=== PATIENT | male | born 1985 | race Caucasian/White ===

== ENCOUNTER 2023-02-05 16:12 | Emergency (ER) | payer SELFPAY ==
[2023-02-05] MEDS ORDERED: CEFAZOLIN 2 GM VIAL ONE (17:26)
[2023-02-05] MEDS ORDERED: Bacitracin 1 PK ONE (17:26)
[2023-02-05] MEDS ORDERED: Sodium Chloride 0.9% 250 ML 250 ML ONE (17:28)
== END 2023-02-05 19:03 | disposition home or self-care (01) ==
LOC: MADERS 16:12
DX: S61.512A Laceration without foreign body of left wrist, initial encounter (principal); T14.8XXA Other injury of unspecified body region, initial encounter; F17.220 Nicotine dependence, chewing tobacco, uncomplicated; W22.8XXA Striking against or struck by other objects, initial encounter
CPT/HCPCS: 12002; 96365; J7050